=== PATIENT | male | born 1985 ===

== ENCOUNTER 2019-05-14 20:54 | Emergency (ER) | payer SELFPAY ==
[2019-05-14] MEDS ORDERED: IBUPROFEN PO ONE ×2 (22:08→22:12)
--- NOTE | 2019-05-14 22:10 | Event Note ---
ED Screening Note Date of service: 05/14/19 Time: 22:09 ED Screening Note: presents with lac to right hand from knife while cooking tonight This initial assessment/diagnostic orders/clinical plan/treatment(s) is/are subject to change based on patients health status, clinical progression and re- assessment by fellow clinical providers in the ED. Further treatment and workup at subsequent clinical providers discretion. Patient/guardian urged not to elope from the ED as their condition may be serious if not clinically assessed and managed. Initial orders include: 600mg of motrin given in triage
[2019-05-15] MEDS ORDERED: XYLOCAINE 2% INFILTRATI STA (01:22)
[2019-05-15] MEDS ORDERED: KEFLEX PO STA (01:22)
[2019-05-15] MEDS ORDERED: BOOSTRIX IM ONE (02:21)
--- NOTE | 2019-05-15 02:28 | Emergency Department Report ---
ED Laceration HPI - HPI Chief Complaint: Laceration/Recheck/Suture Stated Complaint: HAND LAC Time Seen by Provider: 05/14/19 22:09 Occurred When: Today Location: Upper Extremity Severity: mild Tetanus Status: Unknown Laceration Symptoms: Yes Pain, No Foreign Body Sensation, No Numbness, No Weakness Other History: 34-year-old -[place] male was department complaining of laceration to the right hand, sustaining knife while he was cooking. Pain is dull, throbbing in bleeding and he seeks laceration. ED Review of Systems ROS: Stated complaint: HAND LAC Other details as noted in HPI Comment: All other systems reviewed and negative ED Past Medical Hx - Past Medical History Previous Medical History?: No - Surgical History Past Surgical History?: No - Social History Smoking Status: Current Every Day Smoker Substance Use Type: None - Medications Home Medications: Home Medications Medication Instructions Recorded Confirmed Last Taken Type Chlorhexidine Gluconate [Hibiclens] 10 ml TP BID #240 liquid 05/15/19 Unknown Rx Ketorolac [Toradol] 10 mg PO Q6H PRN #15 tablet 05/15/19 Unknown Rx cephALEXin [Keflex] 500 mg PO Q6HR #40 capsule 05/15/19 Unknown Rx Laceration Physical Exam - Exam General: Vital signs noted. No distress. Alert and acting appropriately. Laceration Location: Upper Extremity Full Body Front + Back: 1 - 2 cm laceration to the thenar eminence does have full range of motion with some discomfort. Pulses 2+ Laceration Exam: Yes Normal Distal CMS, No Foreign Body, No Exposed Tendon, Vessel, or Nerve, No Tendon Injury ED Course Vital Signs 05/14/19 22:04 Temperature 98 F Pulse Rate 60 Respiratory 18 Rate Blood Pressure 146/90 O2 Sat by Pulse 99 Oximetry - Procedure Description Procedures done: Centimeter laceration to the right hand. There was prepped and draped in sterile fashion. Anesthesia achieved with 2% lidocaine with no epinephrine. 40 proline was placed placed in simple interrupted fashion 3 for wound closure. Procedure was tolerated well Critical care attestation.: If time is entered above; I have spent that time in minutes in the direct care of this critically ill patient, excluding procedure time. ED Disposition Clinical Impression: Hand laceration Disposition: DC-01 TO HOME OR SELFCARE Is pt being admited?: No Does the pt Need Aspirin: No Condition: Stable Instructions: Laceration (ED), Suture Care (ED) Additional Instructions: Evaluation for suture removal in 7-10 days as discussed Referrals: PRIMARY CARE, [Primary Care Provider] - 3-5 Days [facility] [Provider Group] - 3-5 Days
[2019-05-15] MEDS ORDERED: TRIPLE ANTIBIOTIC TP ONE (02:39)
[2019-05-15 03:25] VITALS: BP 140/94
== END 2019-05-15 03:23 | disposition home or self-care (01) ==
LOC: ED 20:54
DX: S61.411A Laceration without foreign body of right hand, initial encounter (principal); F17.200 Nicotine dependence, unspecified, uncomplicated; W26.0XXA Contact with knife, initial encounter; Y93.89 Activity, other specified; Y92.89 Other specified places as the place of occurrence of the external cause; Y99.8 Other external cause status
CPT/HCPCS: 90471; 90715; A6250